=== PATIENT | female | born 1995 | race Caucasian/White ===

== ENCOUNTER 2019-11-01 12:23 | Observation (INO) ==
[2019-11-01] MEDS ORDERED: PROTONIX IV SCH (12:45)
[2019-11-01] MEDS ORDERED: SODIUM CHLORIDE 0.9% INJ SCH (12:45)
[2019-11-01 14:24] LABS: BASO# 0.04 X1000 (0.0-0.2); BASO% 0.4 % (0.0-0.8); EOS# 0.15 X1000 (0.0-0.7); EOS% 1.5 % (0.0-10.0); HEMATOCRIT 43.2 % (37.0-47.0); HEMOGLOBIN 13.9 g/dL (12.0-16.0); IMM GRAN# 0.02 X1000 (0.0-0.04); IMM GRAN% 0.2 % (0.0-0.5); LYMPH# 2.39 X1000 (1.2-3.4); LYMPH% 23.4 % (20.5-51.1); MCH 25.9 PG (27-31); MCHC 32.2 g/dL (33-37); MCV 80.4 FL (81-99); MONO# 0.47 X1000 (0.11-0.59); MONO% 4.6 % (1.7-9.3); MPV 10.5 FL (7.4-10.4); NEUT# 7.14 X1000 (1.4-6.5); NEUT% 69.9 % (42.2-75.2); PLT 297 X1000 (130-400); RBC 5.37 XMIL (4.2-5.4); RDW 14.1 % (11.5-14.5); WBC 10.21 X1000 (4.8-10.8)
[2019-11-01 14:33] LABS: AGAP 12; ALB/GLOB RATIO 1.2; ALBUMIN 4.2 g/dL (3.5-5.0); ALKALINE PHOSPHATASE 73 U/L (32-104); BUN 9 mg/dL (8-22); CALCIUM 9.5 mg/dL (8.8-10.2); CHLORIDE 103 mmol/L (98-107); COSMO 274; CREATININE 0.8 mg/dL (0.5-0.9); ESTIMATED GFR > 60; GLUCOSE 92 mg/dL (70-104); GOT 23 U/L (10-30); GPT 30 U/L (10-36); POTASSIUM 4.1 mmol/L (3.5-5.1); SODIUM 138 mmol/L (136-145); TCO2 23 mmol/L (25-35); TOTAL BILIRUBIN 0.41 mg/dL (0.20-1.00); TOTAL PROTEIN 7.6 g/dL (6.3-8.3)
[2019-11-01] MEDS: NS + KCL 20 MEQ 1,000 ML IV SCH (14:50)
--- NOTE | 2019-11-01 14:52 | Diag Imaging Result Doc PS360 ---
CHEST-PORTABLE - 11/01/2019 INDICATION: abd pain COMPARISON: None FINDINGS: The lungs are normally expanded and clear. Heart size and mediastinal contours are normal. No pneumothorax or pleural effusion. IMPRESSION: Negative exam. Electronically signed by Derrick Kim 11/01/2019 2:50 PM
--- NOTE | 2019-11-01 15:11 | Diag Imaging Result Doc PS360 ---
CT ABDOMEN/PELVIS W/WO CONTRAS - 11/01/2019 INDICATION: ABD PAIN COMPARISON: None FINDINGS: On the noncontrast exam, there are no abnormal calcifications. On the contrast enhanced exam, there are cholecystectomy clips. Otherwise all abdominal organs are normal. No bowel obstruction or inflammation. Normal appendix. Urinary bladder, uterus, and rectum are normal. Bones are intact and well mineralized. No free air, free fluid, or lymphadenopathy. IMPRESSION: Negative exam. This exam was performed using automated exposure control, adjustment of mA or kV according to patient size, and/or use of iterative reconstruction technique Electronically signed by Derrick Kim 11/01/2019 3:09 PM
[2019-11-01 16:15] LABS: URINE SOURCE VOIDED
[2019-11-01 16:19] LABS: BILIRUBIN URINE NEGATIVE (NEGATIVE); BLOOD URINE NEGATIVE (NEGATIVE); COLOR YELLOW; GLUCOSE URINE NEGATIVE (NEGATIVE); KETONE URINE 10 mg/dL (NEGATIVE); LEUKOCYTES URINE NEGATIVE (NEGATIVE); NITRITE URINE NEGATIVE (NEGATIVE); PH URINE 6.5; PROTEIN URINE NEGATIVE (NEGATIVE); TURBIDITY URINE CLEAR (CLEAR); UROBILINOGEN URINE NORMAL (NORMAL)
[2019-11-01 16:22] LABS: UR EPITHELIAL CELLS <10 /HPF (<10); URINE BACTERIA NEGATIVE /HPF; URINE RBC <10 /HPF (<10); URINE WBC <10 /HPF (<10)
[2019-11-01] MEDS ORDERED: BENTYL PO PRN (17:09)
--- NOTE | 2019-11-01 21:50 | HISTORY AND PHYSICAL ---
CHIEF COMPLAINT: Abdominal pain. HISTORY OF PRESENT ILLNESS: A 23-year-old, white female patient complaining of abdominal pain the last few weeks. The pain is off and on. Sometimes the patient described pain as a constant pain. At times, the patient claims the pain is diffuse. Other times more localized to the right side of the abdomen, right upper quadrant and epigastric area. Pain is mild to moderate. At times severe pain. Denied any nausea or vomiting. I evaluated patient in the office twice. I did blood work, abdominal ultrasound and x-ray. Those were non compulsive. I prescribed her Prilosec. It did not help much. The patient denied any fever or chills. The patient had cholecystectomy done about a year and a half ago. The patient was not feeling well. Patient and her mother were concerned. The patient was crying with the pain. I decided to admit the patient for observation. The patient denied any diarrhea alternating with constipation. Denied being depressed. No back pain. No dysuria or hematuria. No history suggestive of renal colic. Denied any back pain. Denied being depressed. Claims to be anxious and nervous. Because of her chronic pain and suffering, the patient lost some weight. No heat or cold intolerance. ALLERGIES: Tramadol. PAST MEDICAL HISTORY: Gastritis, cholecystectomy, mild obesity, asthma. FAMILY HISTORY: Noncontributory. REVIEW OF SYSTEMS: As per HPI. CURRENT: Medications includes Prilosec. I prescribed her tramadol but she was allergy to it and we had to stop it. PHYSICAL EXAMINATION: GENERAL: A young white female patient in mild distress. VITAL SIGNS: Blood pressure 130/87, pulse 95, respirations 20, temperature 97.9 degrees. SKIN: Senile turgor. HEENT: Head atraumatic, normocephalic. [place] conjunctivae. Anicteric sclerae. Extraocular muscle movement normal. Fundus cannot be penetrated. Good oral hygiene. No tonsillopharyngeal congestion or exudate. Ears and nose benign. NECK: Supple. No JVD, thyromegaly or lymphadenopathy. CHEST: Bilateral good air entry present. No rales or rhonchi. CARDIOVASCULAR: S1 and S2 heard. No gallop or thrill. ABDOMEN: Soft, globular. Bowel sounds present. Tenderness epigastrium and right upper quadrant. No guarding or rigidity. EXTREMITIES: No cyanosis, clubbing. No acute DVT. APPLE PACKING HEADER: Alert, awake. Able to move all 4 limbs. CONSIDERATION: Patient admitted with abdominal pain, not responding to outpatient treatment. Obesity, gastritis. PLAN: Her blood work revealed WBC count 10.21, hemoglobin 13.9, hematocrit 43.2, platelet count 297,000. Electrolytes were fairly benign. Urinalysis was negative. I did CT scan of the abdomen and pelvis and it was unremarkable. As patient had chronic pain workup so far negative, I am going to get gastrointestinal consult with Dr. Lugo. Her presentation discussed and he is going to evaluate the patient. I am also going to consult Dr. Yancey for further evaluation as patient and family are concern to find out the etiology. If patient continued to do well, her clinical condition remains stable, I am planning to discharge patient home tomorrow. cc: Fran Welch MD
--- NOTE | 2019-11-01 23:03 | GASTROENTEROLOGY CONSULTATION ---
DATE: 11/01/2019 REQUESTING PHYSICIAN: Fran Welch MD. REASON FOR CONSULTATION: Abdominal pain. HISTORY: A 23-year-old white female with no history of major medical problem. She was admitted to hospital after she presented to Dr. Welch's office with recurring abdominal pain. She tells me the pain is located in the right side of the abdomen. She points right at the right upper quadrant area. She tells me the pain is sharp, comes and goes, but there is a dull ache persistent in that area. Pain is not related to meal or staying hungry and is also not associated with any symptoms of nausea, vomiting. She denies the pain to be colicky. She tells me that the pain is not related to bowel movements either. She has not felt bloated or gassy. She has regular bowel movements. She has not noticed any change in her bowel habits. She has not noticed any blood or mucus in her stool. She denies any hematemesis or coffee-ground emesis. Her appetite has been good. She has been eating well. She has not lost any weight. She continues to have abdominal pain despite having cholecystectomy done for dysfunctional gallbladder disease. She denies any assessed symptoms of dysuria, polyuria or hematuria. She has not had any fever or chills. Denies any headache, dizziness, or double vision. Denies any earache, ear discharge, ringing in the ear. Denies any cough, sputum, hemoptysis. Denies any chest pain, shortness of breath or palpitation on exertion. She describes the pain as nonpleuritic and it is not positional and is also not related to any movement or position of the body. PAST MEDICAL HISTORY: Nothing significant. PAST SURGICAL HISTORY: She has had cholecystectomy recently. MEDICATIONS: Prior to hospitalization, she was on dicyclomine 10 mg p.o. t.i.d. ALLERGIES: No known drug allergies. SOCIAL HISTORY: She is a student at [employer] in [place]. She does not smoke. Does not drink. Does not do illicit drugs. She also works at a [employer] in [place]. She is single. Lives with her family. FAMILY HISTORY: Noncontributory. REVIEW OF SYSTEMS: As per HPI above. PHYSICAL EXAMINATION: General: A very pleasant white female, overweight, in fact, obese, lying in bed. She appears to be in no distress. Vitals: Temperature 97.9 degrees, pulse is 95 per minute, breathing 20, blood pressure 130/87. HEENT: Atraumatic normocephalic is normal. Sclerae anicteric. Nares patent. No discharge. Mouth is moist. Throat is normal. Neck: Supple. No lymphadenopathy, thyromegaly. Chest: Bilaterally symmetrical, moving with respirations. Breath sounds audible bilaterally. No rhonchi or crepitations could be heard. Heart: S1, S2 audible. No murmur could be appreciated. Abdomen: Obese, soft but slightly tender on deep inspiration, especially in the right upper quadrant area, but no rebound tenderness. There is no guarding noted. Bowel sounds are audible. No pedal edema, cyanosis, clubbing was noted. SPRAYER AUTOMATIC SPRAY MACHINE: Grossly intact. No sensory or motor deficit. LABORATORIES: Reviewed which showed WBC of 10.21, hemoglobin 13.9, hematocrit 23.2, MCV 80.4, platelets were 297. Sodium 138, potassium 4.1, chloride 103, bicarb 23, BUN is 9, creatinine 0.8. Transaminases are normal. Urinalysis was negative. IMPRESSION: This is a 23-year-old white female who has presented with recurring abdominal pain in the right upper quadrant area, with no associated symptoms and the description of the pain appears to be visceral rather than colicky in nature. It does not appear to be musculoskeletal. Does not appear to be peptic in origin either. Her transaminases are normal. I doubt this is related to hepatic biliary disease, also. CT scan of the abdomen does show that she has significant hepatomegaly, most likely from the fatty infiltrate and there is a plausible scenario where the pain could be related to stretching of the hepatic capsule secondary to hepatic infiltration with fat and fatty liver disease. Other than that, again, peptic ulcer disease, I do not see any reason to think that way, but she may have peptic ulcer disease. That can be ruled out by endoscopic evaluation of her stomach and small bowel. I would recommend to continue symptomatic treatment, these may include proton pump inhibitor. I had a long discussion with the patient regarding weight loss, to start that now, and also we will proceed with EGD to rule out peptic ulcer disease. cc: MD Fran Issa MD
[2019-11-02] MEDS: NS + KCL 20 MEQ 1,000 ML IV SCH (02:09)
[2019-11-02 03:38] VITALS: BP 152/78
--- NOTE | 2019-11-02 07:07 | GENERAL SURGERY CONSULTATION ---
DATE: 11/02/2019 HISTORY: Maria Luisa is a pleasant 23-year-old female who I remember from a cholecystectomy a year and a half ago that was done for biliary dyskinesia. She now presents with in general right-sided abdominal pain that becomes quite severe. Because of the severity, she was admitted for further evaluation. It does not seem to be food related or activity related. PAST MEDICAL HISTORY: As noted above. PAST SURGICAL HISTORY: Previous surgery includes the laparoscopic cholecystectomy in March of 2018. MEDICATIONS: Prilosec. I think she had tried some Bentyl as well. She has an intolerance to tramadol. FAMILY HISTORY: Noncontributory. SOCIAL HISTORY: She lives alone. She is in school. She does not smoke or drink alcohol. Denies illicit drug use. REVIEW OF SYSTEMS: Negative in the subsystems except as noted above in the social history. PHYSICAL EXAMINATION: Vital Signs: She is afebrile, heart rate 70, and blood pressure is 152/78. Lymphatic: There is no cervical adenopathy. Lungs: Bilateral breath sounds are present. Heart: Regular rate and rhythm. Abdomen: Soft. She is not particularly tender to palpation. Bowel sounds are present. Extremities: No peripheral edema. Neurologic: She is awake and alert. [place]ORATORY: [place] [address], hemoglobin 13.9, total bilirubin 0.41. AST, ALT, and alkaline phosphatase all within normal limits. Her urine is unremarkable. CT scan was read as normal. ASSESSMENT: Right upper quadrant pain of uncertain etiology. There certainly is no apparent postoperative complications. I think the most likely cause of her pain would be distention of her liver capsule due to fatty liver. Of course, other etiologies could be the sphincter of Oddi dysfunction or even pancreatic divisum. I reassured her that there was no surgical intervention indicated at this time. cc: MD Fran Finley MD
--- NOTE | 2019-11-02 13:04 | DISCHARGE SUMMARY ---
ADMISSION DATE: 11/01/2019 DISCHARGE DATE: 11/02/2019 FINAL DISCHARGE DIAGNOSES: 1. Abdominal pain. 2. Fatty liver. 3. Obesity. HOSPITAL COURSE: Ms. Alicia 23-year-old, white female patient admitted with abdominal pain, not responding to outpatient treatment. The pain was moderate in intensity. The patient had a few outpatient visits. Patient was still hurting significantly. No fever or chills. At times, pain was much more severe. The rest of the information as per HPI. I decided to admit the patient for further care. The patient was treated with IV Protonix, IV fluid and symptomatic treatment. I requested GI and surgical consult. Dr. Lugo evaluated patient and recommendations noted. The patient is doing better. No fevers chills, nausea, vomiting. The patient had fatty liver. Plan discussed with patient and her mother. Dr. Lugo also explained to them about fatty liver and possible peptic ulcer disease and weight reduction. DISPOSITION: I am planning to discharge patient home today. DISCHARGE INSTRUCTIONS: Continue proton pump inhibitor and give her Bentyl. Follow up with Dr. Lugo to live in 10 days. Follow up with me in 10 days. In case of more distress, call us back or go to emergency room. Encouraged weight reduction. Her CBC was benign. Hemoglobin 13.9, hematocrit 43.2, platelet count 297,000. WBC count 10.21, CMP was benign. Urinalysis was negative. CT scan of the abdomen and pelvis, evidence of cholecystectomy. Otherwise negative exam. cc: Fran Welch MD
== END 2019-11-02 07:59 | disposition home or self-care (01) ==
LOC: DIRADM → EDIPHOLD 12:23 → 4N 15:55
PROVIDERS: ADMIT Internal Medicine; ATTEND Internal Medicine